=== PATIENT | male | born 2000 | race African-American/Black ===

== ENCOUNTER 2025-04-28 23:26 | Emergency (ER) | payer OTHER ==
[~2025-04-28] VITALS: Ht 188 cm; Wt 118.0 kg
[2025-04-28 23:50] VITALS: O2SAT 100
[2025-04-29] MEDS ORDERED: AZIT250T12 MT (00:22)
[2025-04-29 00:30] VITALS: BP 139/81; PULSE 83; RESP 12; TEMP 36.8; O2SAT 98
== END 2025-04-29 00:35 | disposition home or self-care (01) ==
LOC: ER 23:26
DX: J02.9 Acute pharyngitis, unspecified (principal); H74.8X1 Other specified disorders of right middle ear and mastoid
CPT/HCPCS: 99282; 99283